=== PATIENT | female | born 2000 | race Caucasian/White ===

== ENCOUNTER 2021-11-06 20:06 | Emergency (ER) | payer BC ==
[~2021-11-06] VITALS: Ht 165.1 cm; Wt 65.8 kg
[~2021-11-06 20:06] MED LIST: ONDAN4ODT SL
[2021-11-06 20:12] VITALS: BP 138/73
[2021-11-06] MEDS ORDERED: CEPH500T PO (20:21)
--- NOTE | 2021-11-06 20:21 | ED Integumentary General ---
General Chief Complaint: Skin/Wound Problems Stated Complaint: BUG BITE ON STOMACH,SWELLING/SPREADING,ITCHING Source: patient Exam Limitations: no limitations History of Present Illness Date Seen by Provider: Nov 06, 2021 Time Seen by Provider: 20:18 Initial Comments Patient presents to the emergency room for evaluation of a possible insect bite on her left abdomen. She states she noticed it on Monday or and it has slowly gotten bigger. She has not attempted any therapy for and nothing specifically makes it better or worse Location: torso Possible Cause: no cause identified Allergies and Home Medications Allergies Coded Allergies: No Known Drug Allergies (Unverified , 05/30/12) Patient Home Medication List Home Medication List Reviewed: Yes Ondansetron Hcl (Zofran Oral Dissolve) 4 Mg Tab, 4 MG SL Q4H Prescribed by: JUSTIN PETERSEN on 05/30/12 0807 Review of Systems Review of Systems Constitutional: no symptoms reported EENTM: no symptoms reported Respiratory: no symptoms reported Cardiovascular: no symptoms reported Gastrointestinal: no symptoms reported Genitourinary: no symptoms reported Musculoskeletal: no symptoms reported Skin: rash Psychiatric/Neurological: No Symptoms Reported Past Qaseepl-Xupuxa-Qmfofo Hx Past Medical History Reproductive Disorders: No Sexually Transmitted Disease: No Physical Exam Vital Signs Capillary Refill : General Appearance: WD/WN, no apparent distress HEENT: PERRL/EOMI, normal ENT inspection Neck: non-tender Cardiovascular: regular rate, rhythm Respiratory: chest non-tender Gastrointestinal: non tender Skin: rash (3 cm area of erythema and induration to left lower abdomen. No streaking or fluctuance) Progress/Results/Core Measures Results/Orders My Orders Orders - ADALID GRAHAM Cephalexin Capsule (Keflex Capsule) (11/06/21 20:30) Departure Impression Primary Impression: Infected insect bite Disposition: HOME, SELF-CARE Condition: Stable Departure-Patient Inst. Decision time for Depature: 20:20 Referrals: DELBERT LUNA DO (PCP/Family) Primary Care Physician Scripts Cephalexin (Cephalexin) 500 Mg Tablet 500 MG PO TID for 10 Days, #30 TAB Prov: ADALID GRHAAM 11/06/21 ADALID GRAHAM Nov 06, 2021 20:21
[2021-11-06] MEDS ORDERED: CEPHALEXIN 250 MG (KEFLEX) CAP PO ONE (20:30)
== END 2021-11-06 20:28 | disposition home or self-care (01) ==
LOC: EDUNIT# 20:06 → ER 20:08
DX: S30.861A Insect bite (nonvenomous) of abdominal wall, initial encounter (principal); L08.9 Local infection of the skin and subcutaneous tissue, unspecified; W57.XXXA Bitten or stung by nonvenomous insect and other nonvenomous arthropods, initial encounter
CPT/HCPCS: 99283